=== PATIENT | female | born 1985 | race Two or more races ===

== ENCOUNTER 2019-01-17 22:49 | Emergency (ER) | payer MEDICAID ==
[2019-01-17 23:00] VITALS: BP 117/73
[2019-01-18] MEDS ORDERED: ACETAMINOPHEN 325 MG TABLET PO ONE (00:30)
== END 2019-01-18 01:49 | disposition left against medical advice (07) ==
LOC: ER 22:49
DX: Z53.21 Procedure and treatment not carried out due to patient leaving prior to being seen by health care provider (principal); R50.9 Fever, unspecified